=== PATIENT | male | born 1995 | race Caucasian/White ===

== ENCOUNTER 2017-01-27 09:53 | Emergency (ER) | payer OTHER ==
[~2017-01-27] VITALS: Ht 172.7 cm; Wt 59.1 kg
[2017-01-27 09:58] VITALS: BP 109/68; PULSE 74; RESP 18; O2SAT 98
[2017-01-27] MEDS ORDERED: 0.9% Sodium Chloride 1,000 ML IV ONE (10:14)
[2017-01-27] MEDS ORDERED: Ondansetron 2 mg/mL 2 mL Inj IVPUSH ONE (10:15)
--- NOTE | 2017-01-27 10:15 | ED.REPORT ---
HPI-General Illness Date of Service Jan 27, 2017 ED Provider: Marcell Mcginnis MD Patient is a 21 year old male who presents to the ED complaining of vomiting onset this morning. He drank 5-6 shots of Captain Dontrell last night. He came to the ED because he was "concerned he had a stomach infection like he has had previously". he denies fever, diarrhea, or any other symptoms. Vomiting is nonbloody. He reports that since getting here symptoms have significantly improved. Nursing Notes Stated Complaint: VOMITING,POSS STOMACH INFECTION Chief Complaint: Male Abdominal Pain Nursing Notes Reviewed: Yes Allergies: Coded Allergies: No Known Allergies (Unverified , 01/27/17) Scheduled PRN Ondansetron ODT (Zofran ODT) 4 Mg Tablet 4 MG PO Q4H PRN PRN For Nausea General Time Seen by MD: 10:11 Chief Complaint Vomiting Hx Obtained From: Patient Arrived By: Walk-in Sudden in Onset?: Yes Recent Healthcare: Recent doctor visit Similar Sx Previous: Yes Past Medical History Past Medical History Unknown Past Surgical History Unknown Social History Alcohol Use: "Social" Ambulatory Status Independent Review of Systems Full Review of Systems Constitutional: Denies: Fever GI: Reports: Nausea, Vomiting, Denies: Diarrhea Complete sys rev & neg: except as marked. Physical Exam Vital Signs Vital Signs Date Time Temp Pulse Resp B/P Pulse Ox O2 Delivery O2 Flow Rate FiO2 01/27/17 11:55 36.8 66 16 101/61 98 Room Air 01/27/17 09:58 37.0 74 18 109/68 98 Room Air Initial VS: Reviewed, Vital signs normal Head / Eyes: Atraumatic, Normocephalic Neck: Full range of motion Respiratory: Breath sounds normal, Clear to auscultation, No respiratory distress Cardiovascular: Regular rate & rhythm, Heart sounds normal, Intact distal pulses Skin: Warm, Dry Neurologic: Alert, Oriented, Nonfocal Psychiatric: Mood/affect normal, Behavior normal, Normal thought content General/Constitutional: Awake, Alert, No acute distress, Well appearing, Well developed Mouth: Positive: Mucous membranes dry Abdomen: Atraumatic, Soft, Non-tender, No guarding, No rebound, BS normoactive , No distention Tolderates firm palpation to all 4 quadrants Interpretation & Diagnostics Lab Results Interpretation Result Diagram: 01/27/17 1010 01/27/17 1010 Test 01/27/17 10:10 White Blood Count 7.3th/mm3 (3.8-10.1) Red Blood Count 4.80mil/mm3 (4.40-5.80) Hemoglobin 15.2g/dL (13.8-17.2) Hematocrit 42.4% (41.0-50.0) Mean Corpuscular Volume 88.3fL (81-100) Mean Corpuscular Hemoglobin 31.7pg (27.0-35.0) Mean Corpuscular Hemoglobin Concent 35.8% (32.0-37.0) Red Cell Distribution Width 12.0% (12.3-15.4) Platelet Count 247bil/L (150-400) Neutrophils (%) (Auto) 75.4% (40-74) Lymphocytes (%) (Auto) 16.5% (14-46) Monocytes (%) (Auto) 6.4% (4-12) Eosinophils (%) (Auto) 1.5% (0-5) Basophils (%) (Auto) 0.1% (0-3) Sodium Level 140mEq/L (134-144) Potassium Level 4.3mEq/L (3.5-5.2) Chloride Level 103mEq/L (97-108) Carbon Dioxide Level 23mmol/L (18-29) Blood Urea Nitrogen 8mg/dL (6-20) Creatinine 0.61mg/dL (0.76-1.27) Estimat Glomerular Filtration Rate 177mL/min (>59) Glucose Level 89mg/dL (60-99) Calcium Level 9.8mg/dL (8.5-10.1) Magnesium Level 1.9mg/dL (1.6-2.6) Total Bilirubin 0.7mg/dL (0.0-1.2) Aspartate Amino Transf (AST/SGOT) 27U/L (0-50) Alanine Aminotransferase (ALT/SGPT) 25U/L (0-44) Alkaline Phosphatase 76U/L (25-150) Total Protein 7.6g/dL (6.4-8.4) Albumin 4.5g/dL (3.4-5.0) Lipase 19U/L (13-60) Hold Hopper Top Tube Received (Received) Re-Eval/Medical Decision Med Decision/Clinical Course Patient is a 21 year old male who presents to the ED complaining of vomiting onset this morning. He drank 5-6 shots of [place] D[place]rell last night. He came to the ED because he was "concerned he had a stomach infection like he has had previously". he denies fever, diarrhea, or any other symptoms. Vomiting is nonbloody. He reports that since getting here symptoms have significantly improved. Here in the emergency department the patient was treated with Zofran and IV fluids. He reported feeling much better. Serial abdominal examinations were benign. At this time, there is no evidence suggestive of an acute surgical intra-abdominal process. I do not feel that further workup is immediately indicated. I do not feel that laboratory or imaging studies would be of much diagnostic benefit. Patient has been advised to cut back his alcohol consumption. He was provided with a prescription for several additional tablets of Zofran should he need it. He is advised to drink lots of fluids, get rest. Prior to discharge follow-up and return precautions were reviewed in detail with the patient who verbalized understanding and agreement with the plan. The patient was discharged in stable condition. Time of Eval: 11:23 Re-Evaluation/Progress Note: Discussed plan for discharge. Patient understands and agrees with plan. All questions addressed at this time. Counseled Regarding: Diagnosis, Lab results, Need for follow-up, When/why to return to ED Discharge & Departure Primary Impression: Gastritis Gastritis type: alcoholic Chronicity: acute Gastritis bleeding: without bleeding Qualified Code: K29.20 - Alcoholic gastritis without bleeding Additional Impression: Alcohol abuse Disposition: Home Discharge Condition All VS Reviewed: Yes Condition: Improved Additional Instructions: Thank you for seeking care at the emergency room. It is difficult for us to make definitive diagnoses in the ED but we believe that you are experiencing gastritis from alcohol. Our primary goal today in the ED was to evaluate you for any life-threatening conditions. Your evaluation was reassuring. You will be discharged with a prescription for for Zofran, please use as needed. You should follow-up with your primary doctor in the next week. You should return to the ED immediately if you develop recurrent symptoms, fevers, vomiting, cough, shortness of breath, chest pain, lightheadedness, weakness or any other concerning signs or symptoms. Thank you for letting us partake in your care today. Scribe Attestation Portions of this note were transcribed by Molly Epps. I, Dr. Mcginnis personally performed the history, physical exam and medical decision-making; I reviewed and confirmed the accuracy of the information in the transcribed note. Signed by: Molly Epps 01/27/17, 1125 Marcell Mcginnis MD Jan 27, 2017 10:15 MOLLY EPPS Jan 27, 2017 10:32
[2017-01-27 10:25] LABS: BASOPHILS % (AUTO) 0.1 % (0-3); EOSINOPHILS % (AUTO) 1.5 % (0-5); MONOCYTES % (AUTO) 6.4 % (4-12); Mean Corpuscular Hemoglobin 31.7 pg (27.0-35.0); Mean Corpuscular Volume 88.3 fL (81-100); NEUTROPHILS % (AUTO) 75.4 % (40-74); Platelet Count 247 bil/L (150-400)
[2017-01-27 10:45] LABS: Magnesium 1.9 mg/dL (1.6-2.6)
[2017-01-27] MEDS ORDERED: ONDA4TAB9 PO (11:24)
[2017-01-27 11:55] VITALS: BP 101/61; PULSE 66; RESP 16; O2SAT 98
== END 2017-01-27 11:55 | disposition home or self-care (01) ==
LOC: SED 09:53
DX: K29.20 Alcoholic gastritis without bleeding (principal); F10.10 Alcohol abuse, uncomplicated
CPT/HCPCS: 36415; 80053; 83690; 83735; 85025; 96361; 96374; 99284; J2405; J7030

== ENCOUNTER → 2017-02-06 | Day surgery (SDC) | payer OTHER ==
[2017-02-06] VITALS (7 sets, daily range): BP systolic 114–126; BP diastolic 46–60; PULSE 54–77; RESP 16–20; O2SAT 97–100
[~2017-02-06] VITALS: Ht 167.6 cm; Wt 54.9 kg
[~2017-02-06] MED LIST: Atropine 0.4 mg/mL Inj IVPUSH PRN; Bupivacaine-MPF 0.5% W/EPI 30 mL Inj INFILTRATE ONE; CeFAZolin Inj 2 GM in IV Premix 1 EACH IV ONE; Dexamethasone 4 mg/mL Inj ONE; EPHEDrine Sulfate 50 mg/mL Inj IVPUSH PRN; Glycopyrrolate 0.2 MG/ML 1mL Inj ONE; HYDROmorphone 1 mg/mL Inj IVPUSH PRN; Labetalol 5 mg/mL 4 mL Inj IV PRN; Lactated Ringer's 1,000 ML IV SCH; Lactated Ringer's 500 ML IV PRN; Lidocaine 2%-Epi 1:100,000 20 mL Inj NERVEBLOCK ONE; MetoCLOpramide 5 mg/mL 2 mL Inj IVPUSH PRN; ONDA4TAB9 PO; Ondansetron 2 mg/mL 2 mL Inj IVPUSH PRN; Ondansetron 2 mg/mL 2 mL Inj ONE; Phenylephrine 10,000 mCg/mL Inj IVPUSH PRN; Propofol 10,000 mCg/mL 20 mL Inj ONE; fentaNYL-PF 50 mCg/mL 2 mL Inj IVPUSH PRN; fentaNYL-PF 50 mCg/mL 2 mL Inj ONE
[2017-02-06] MEDS: Lactated Ringer's 1,000 ML IV SCH ×2 (09:00→09:55)
--- NOTE | 2017-02-06 09:31 | PCM.HPANE ---
Patient Data Surgeon Admitting Provider: Attending Provider:Artur Doll DPM Primary Care Physician:Loyda Other Provider:Sharath Park Anesthesia Reason for Visit Left 2ND & 3RD Metatarsal Fractures Ht/WT & BMI Height (Feet): 5 Height (Inches): 6 Weight (Kilograms): 54.9 Body Mass Index 19.00 Allergies Uncoded Allergies: POLLENS (Adverse Reaction, Unknown, UNKNOWN, 02/04/17) Past Anesthesia History Anesthesia History: Denies:: Abnormal Airway, Anesthesia Reactions, Difficult Intubation, Fam Anesthesia Reaction, Fam Malignant Hypertherm, Malignant Hyperthermia Diabetes History Hx Diabetes?: No MRSA MRSA: No Medications Hypertension Medication: No Home Meds Incl Beta Sherri: No Active Scripts Ondansetron ODT (Zofran ODT)4 Mg Tablet4 Mg PO Q4H PRN For Nausea #20 TABLET Prov:Marcell Mcginnis MD 01/27/17 History History of ENT Problems?: No HEENT History: Denies:: Abnormal Airway Cataracts Difficult Intubation Dysphagia Glaucoma Hearing Problem Sinus Problem TMJ Denture Type: None Teeth Condition: Within Normal Limits Hx of Heart Problems?: No Cardiovascular History: Denies:: AICD Abdominal Aortic Aneurism Atrial Fibrillation Cardiac Surgery Chest Pain Congestive Heart Failure Coronary Artery Disease Edema Heart Murmur Hypertension Irregular Heartbeat Pacemaker Peripheral Vascular Rheumatic Fever Thrombophlebitis Valvular Heart Disease Hx of Respiratory Problem?: No Respiratory History: Denies:: Asthma COPD Chest Surgery Cough Dyspnea Emphysema Hemoptysis Oxygen Administration Pneumonia Pulmonary Embolism Tuberculosis Use of C-PAP Machine Use of Inhalers / NEBS Hx Neurologic Problems?: No Neurological History: Denies:: Alzheimer's Disease CVA Dementia Dizziness Headaches Multiple Sclerosis Parkinson's Disease Peripheral Neuropathy Seizures TIA Hx of GI Problems?: Yes Other GI Pertinent History: ED VISIT FOR "ALCOHOLIC" GASTRITIS 01/27/17- RESOLVED Hx of Problems?: No Male Hx: Denies:: Prostate Problems Scrotal Mass Testicular Surgery Skin History: Denies:: History Skin Disorders? Pressure Ulcers Hx Musculoskeletal Problems?: Yes Musculoskeletal History: Positive for:: Musculoskeletal Trauma (FX LT 2ND,3RD METATARSALS (DOI 2 MONTHS AGO)=CURRENT PROBLEM) Hx of Psycho/Social Problems?: No Hx Surgeries?: Yes (EXC FIBROUS TUMOR ??SITE IN CHILDHOOD) Hx Any Other Health Problems?: Yes Other History: Denies:: Cancer Endocrine Disease Hospitalization Thyroid Disease Hx Diabetes: No Hx Alcohol Use: Yes ("SOCIAL") Smoking Status: Current Every Day Smoker Have You Smoked inLast 12 mo: Yes Stop/Bang S-Snoring: Do You Snore Loudly: No T-Tired: feel tired, fatigued: No O-Obsered: Observed not breath: No P-Blood Pressure: treated: No B- Body Mass Index > 35 kg/m2: No A- Age over 50: No N- Neck Large Circumference: No G- Gender Male: Yes TRACEY Total Score: 1 TRACEY Risk Assessment: Low Risk, <3 Yes Risk Assessment Category Category 1A: Patient has history of documented sleep apnea, and HAS NOT received any narcotic, sedative or anesthesia administration during this stay. Category 1B: Patient has history of documented sleep apnea, and HAS received any narcotic , sedative or anesthesia administration during this stay Category 2: Patient has SUSPECTED Obstructive Sleep Apnea, and HAS received any narcotic , sedative or anesthesia administration during this stay. Category 3: Patient has SUSPECTED Obstructive Sleep Apnea and HAS NOT received narcotic, sedative or anesthesia administration during this stay. Category 4: Outpatient in Procedural Areas with known sleep apnea or who screen positive for High Risk via the STOP/BANG questionnaire. Exam Exam Vital Signs Vital Signs Date Time Temp Pulse Resp B/P Pulse Ox O2 Delivery O2 Flow Rate FiO2 02/06/17 08:58 36.4 60 16 116/51 99 Room Air General Appearance: Alert, Oriented X3, Cooperative, No Acute Distress HEENT/AIRWAY: MP 2 Lungs: Clear to Auscultation, Normal Air Movement Heart: Exam Unremarkable, Regular Rate/Rhythm, No Murmurs/Rubs/Gallops Meds/Labs/Diagnostics Admission Meds Current Medications Lactated Ringer's (Lr) 1,000 ml @ 120 mls/hr Q8H20M IV Last administered on t 09:00; Start 02/06/17 at 05:00; Stop 02/06/17 at 13:19 Plan Impression Patient chart reviewed, patient interviewed and anesthestic plan with risks, benefits, and alternatives discussed, and informed consent obtained. NPO per Anesth. Guidelines: Yes ASA Physical Status: ASA2 Mod Systemic Disease Anesthetic Plan: GA Bene/Risks/Altern/Consents: Yes HP Complete Prior to Induction: Yes Aaron Hawk MD Feb 06, 2017 09:31
--- NOTE | 2017-02-06 13:04 | PCM.ANEP1 ---
Post Anesthesia PACU Phase 1 Assessment Vital Signs Vital Signs Date Time Temp Pulse Resp B/P Pulse Ox O2 Delivery O2 Flow Rate FiO2 02/06/17 13:00 36.5 57 17 114/50 97 Room Air 02/06/17 12:55 60 16 114/50 97 Room Air 02/06/17 12:50 68 20 119/53 100 Room Air 02/06/17 12:46 36.6 77 17 126/53 99 Room Air 02/06/17 08:58 36.4 60 16 116/51 99 Room Air Anesthetic Administered: GA Level of Alertness: Sleepy, easy to arouse MELENDEZ's with Equal Strength: Yes Pain: No Nausea or Vomiting: No CV Function & Hydration Stable: Yes Airway Device: Oxygen Delivery: Room Air Lungs: Clear to Auscultation, Normal Air Movement PACU Phase 2 Assessment Complications: No Follow up Care: N/A Patient Instructions Provided: N/A Aaron Hawk MD Feb 06, 2017 13:04
--- NOTE | 2017-02-06 14:07 | OP ---
[address] [address] OPERATIVE REPORT PATIENT: ANNAMARIE SAUCEDA : 1995 MR#: [id number] ADMIT: 02/06/2017 JOB ID: [id number] DATE OF SURGERY: 02/06/2017 SURGEON: Artur Doll DPM PREOPERATIVE DIAGNOSIS(ES): 1. Displaced and shortened fracture left third metatarsal. 2. Nondisplaced, partially healed fractures of metatarsals two and four. POSTOPERATIVE DIAGNOSIS(ES): 1. Displaced and shortened fracture left third metatarsal. 2. Nondisplaced, partially healed fractures of metatarsals two and four. PLANNED PROCEDURE: Open reduction and internal fixation of left 3rd metatarsal with fluoroscopic evaluation of fractures of the second and 4th metatarsals. ANESTHESIA: General LMA with local block. HEMOSTASIS: None. ESTIMATED BLOOD LOSS: Less than 5 cc. COMPLICATIONS: None. PROCEDURE AND FINDINGS: The patient is brought to the operating room and placed on the table in supine position. He was placed under general LMA anesthesia, followed by a dorsal block to the left foot of 2% lidocaine with epinephrine. The left lower extremity is prepped and draped in normal sterile surgical manner. Attention was directed to the dorsum of the foot where an incision was placed after fluoroscopic exam. The incision was placed over the 3rd metatarsal, with careful dissection down to the metatarsal shaft, carefully cauterizing and/or ligating any bleeders that were encountered. Prior to the reduction and fixation of the 3rd metatarsal, I did fully examine the 2nd and 4th metatarsals under considerable stress using live fluoroscopy. Both were found to be stable and well reduced and therefore were deferred for any further intervention. The 3rd metatarsal, however, did have considerable shortening and transverse plane deformity as well as sagittal plane dorsiflexion of the capital fragment. Consequently I did gently dissect the periosteal tissues free and then placed traction on the third toe while releasing tissues and bone callus to restore length. Once length was restored, this was sustained with a bone clamp. Initially I placed an interfragmentary screw as temporary fixation, which required removal later on for placement of the plate. Once a good anatomic reduction was confirmed on live fluoroscopy, I placed a seven hole titanium T-plate over the metatarsal shaft and between the reducing clamp. This was secured with a series of seven titanium bone screws at various angles to better reduce the fracture and to pull together fragments which had previously partially healed. Reestablishment of the anatomic contours was confirmed again on live fluoroscopy. I irrigated the wound with normal saline, followed with a durable block of 0.5% bupivacaine with epinephrine, both as the ankle block and also posterior to the calcaneus. The periosteum and deep tissue planes were closed with 3-0 Vicryl, followed by 4-0 Vicryl running subcu closure. This was further stabilized with Steri-Strips over tincture of benzoin. Dressings included saline moistened Edmond silk, saline moistened fluffs, a Kerlix roll, tubular stockinette, under cast padding, further secured with Terrell bandages placed loosely. The patient had immediate CFT to all digits throughout the procedure as no tourniquet was applied. He was transferred from the operating room in stable condition, having tolerated the procedure and anesthetic well. POSTOPERATIVE PLAN: The patient will be discharged home and remain nonweightbearing upon the limb. He is placed in an orthopedic boot for further protection. He has already become proficient with the use of crutches. He will be seen in my regular office next week, but I will follow him with a phone interview over the weekend. He was provided with a prescription for pain medication and prophylactic antibiotics. The patient's questions were answered and I will look forward to talking with him this weekend. My thanks to our surgical and anesthesia teams for their expert assistance in this gentleman's care.
== END | disposition home or self-care (01) ==
LOC: SAS 08:39
PROVIDERS: ATTEND Podiatrist
DX: S92.332A Displaced fracture of third metatarsal bone, left foot, initial encounter for closed fracture (principal); S92.325A Nondisplaced fracture of second metatarsal bone, left foot, initial encounter for closed fracture; S92.345A Nondisplaced fracture of fourth metatarsal bone, left foot, initial encounter for closed fracture; F17.210 Nicotine dependence, cigarettes, uncomplicated; V00.131A Fall from skateboard, initial encounter; Y93.89 Activity, other specified; Y92.9 Unspecified place or not applicable; Y99.8 Other external cause status
CPT/HCPCS: 28485; C1713; J0690; J1100; J1885; J2250; J2405; J3010; J7120